=== PATIENT | male | born 1960 | race Caucasian/White ===

== ENCOUNTER 2017-04-15 14:54 | Observation (INO) | payer OTHER ==
[~2017-04-15] VITALS: Ht 170.2 cm; Wt 77.3 kg
[2017-04-15] VITALS (8 sets, daily range): BP systolic 121–152; BP diastolic 68–94; PULSE 55–90; RESP 14–18; TEMP 97.9–98.7; O2SAT 53–99
--- NOTE | 2017-04-15 14:58 | PD ---
HPI Chief Complaint: syncopal episode Time Seen by Provider: 14:58 Travel History International Travel<30 days: No Contact w/Intl Traveler<30days: No Traveled to known affect area: No History of Present Illness HPI 57-year-old male with history for CAD, ID approximately 3 months ago with stent placement, alcohol dependency and tobacco dependency, presents to [facility] department today for evaluation of a syncopal episode. Patient states that he does not know what happened. Per [facility] report, the patient collapsed. When he awoke he was confused about what happened. Patient states he did not have any aura or lightheaded sensation prior to this. He has not been recently ill. He is denying any chest pain or tightness. No difficulty breathing. There is no loss of bowel or bladder. No tongue biting. Patient is on Plavix. He has no other symptoms to report. PFSH Past Medical History Cardiac Catheterization: Yes Social History Alcohol Use: Yes Tobacco Use: Yes Allergies-Medications (Allergen,Severity, Reaction): Coded Allergies: No Known Allergies (Unverified , 04/15/17) Review of Systems Except as stated in HPI: all other systems reviewed are Neg Physical Exam Narrative GENERAL: Well-nourished male patient, sitting up in bed in no acute distress SKIN: Focused skin assessment warm/dry. Psoriatic plaques over the anterior lateral trunk. HEAD: Atraumatic. Normocephalic. EYES: Pupils equal and round. No scleral icterus. No injection or drainage. ENT: No nasal bleeding or discharge. Mucous membranes pink and moist. NECK: Trachea midline. No JVD. CARDIOVASCULAR: Regular rate and rhythm. No murmur appreciated. RESPIRATORY: No accessory muscle use. Diminished. Breath sounds equal bilaterally. GASTROINTESTINAL: Abdomen soft, non-tender, nondistended. Hepatic and splenic margins not palpable. MUSCULOSKELETAL: No obvious deformities. No clubbing. No cyanosis. No edema. NEUROLOGICAL: Awake and alert. No obvious cranial nerve deficits. Motor grossly within normal limits. Normal speech. PSYCHIATRIC: Appropriate mood and affect; insight and judgment normal. Data Data Last Documented VS Vital Signs Date Time Temp Pulse Resp B/P Pulse Ox O2 Delivery O2 Flow Rate FiO2 04/15/17 17:09 71 142/80 79 148/90 76 150/89 04/15/17 15:10 14 97 Room Air 04/15/17 15:05 98.7 Orders Electrocardiogram (04/15/17 15:06) Complete Blood Count With Diff (04/15/17 15:06) Comprehensive Metabolic Panel (04/15/17 15:06) Magnesium (Mg) (04/15/17 15:06) Ckmb (Isoenzyme) Profile (04/15/17 15:06) Troponin I (04/15/17 15:06) Act Partial Throm Time (Ptt) (04/15/17 15:06) Prothrombin Time / Inr (Pt) (04/15/17 15:06) Chest, Single Ap (04/15/17 15:06) Ct Brain W/O Iv Contrast(Rout) (04/15/17 15:06) Ecg Monitoring (04/15/17 15:06) Iv Access Insert/Monitor (04/15/17 15:06) Oximetry (04/15/17 15:06) Sodium Chloride 0.9% Flush (Ns Flush) (04/15/17 15:15) Sodium Chlor 0.9% 1000 Ml Inj (Ns 1000 M (04/15/17 15:06) CKMB (04/15/17 15:10) CKMB% (04/15/17 15:10) Orthostatic Vital Signs (04/15/17 16:49) Admit Order (Ed Use Only) (04/15/17 17:23) Labs Laboratory Tests Test 04/15/17 15:10 White Blood Count 7.5 TH/MM3 Red Blood Count 3.85 MIL/MM3 Hemoglobin 13.4 GM/DL Hematocrit 38.5 % Mean Corpuscular Volume 100.1 FL Mean Corpuscular Hemoglobin 34.8 PG Mean Corpuscular Hemoglobin 34.8 % Concent Red Cell Distribution Width 12.8 % Platelet Count 239 TH/MM3 Mean Platelet Volume 6.6 FL Neutrophils (%) (Auto) 71.7 % Lymphocytes (%) (Auto) 17.1 % Monocytes (%) (Auto) 8.1 % Eosinophils (%) (Auto) 2.4 % Basophils (%) (Auto) 0.7 % Neutrophils # (Auto) 5.4 TH/MM3 Lymphocytes # (Auto) 1.3 TH/MM3 Monocytes # (Auto) 0.6 TH/MM3 Eosinophils # (Auto) 0.2 TH/MM3 Basophils # (Auto) 0.1 TH/MM3 CBC Comment DIFF FINAL Differential Comment Prothrombin Time 10.7 SEC Prothromb Time International 1.0 RATIO Ratio Activated Partial 23.9 SEC Thromboplast Time Sodium Level 141 MEQ/L Potassium Level 3.5 MEQ/L Chloride Level 109 MEQ/L Carbon Dioxide Level 20.7 MEQ/L Anion Gap 11 MEQ/L Blood Urea Nitrogen 12 MG/DL Creatinine 0.91 MG/DL Estimat Glomerular Filtration 86 ML/MIN Rate Random Glucose 110 MG/DL Calcium Level 8.7 MG/DL Magnesium Level 1.7 MG/DL Total Bilirubin 0.3 MG/DL Aspartate Amino Transf 41 U/L (AST/SGOT) Alanine Aminotransferase 46 U/L (ALT/SGPT) Alkaline Phosphatase 82 U/L Total Creatine Kinase 288 U/L Creatine Kinase MB 3.1 NG/ML Troponin I LESS THAN 0.02 NG/ML Total Protein 6.9 GM/DL Albumin 3.4 GM/DL [facility] Medical Decision Making Medical Screen Exam Complete: Yes Emergency Medical Condition: Yes Medical Record Reviewed: Yes Differential Diagnosis Syncope versus near syncope versus seizure versus electrolyte abnormality versus dehydration versus cardiac event Narrative Course 57-year-old male presents to the emergency department following a syncopal episode. Patient at this time is awake and alert. He does not recall the event. He has not had anything like this in the past. Patient does have significant cardiac history. Laboratory Tests Test 04/15/17 15:10 White Blood Count 7.5 TH/MM3 Red Blood Count 3.85 MIL/MM3 Hemoglobin 13.4 GM/DL Hematocrit 38.5 % Mean Corpuscular Volume 100.1 FL Mean Corpuscular Hemoglobin 34.8 PG Mean Corpuscular Hemoglobin 34.8 % Concent Red Cell Distribution Width 12.8 % Platelet Count 239 TH/MM3 Mean Platelet Volume 6.6 FL Neutrophils (%) (Auto) 71.7 % Lymphocytes (%) (Auto) 17.1 % Monocytes (%) (Auto) 8.1 % Eosinophils (%) (Auto) 2.4 % Basophils (%) (Auto) 0.7 % Neutrophils # (Auto) 5.4 TH/MM3 Lymphocytes # (Auto) 1.3 TH/MM3 Monocytes # (Auto) 0.6 TH/MM3 Eosinophils # (Auto) 0.2 TH/MM3 Basophils # (Auto) 0.1 TH/MM3 CBC Comment DIFF FINAL Differential Comment Prothrombin Time 10.7 SEC Prothromb Time International 1.0 RATIO Ratio Activated Partial 23.9 SEC Thromboplast Time Sodium Level 141 MEQ/L Potassium Level 3.5 MEQ/L Chloride Level 109 MEQ/L Carbon Dioxide Level 20.7 MEQ/L Anion Gap 11 MEQ/L Blood Urea Nitrogen 12 MG/DL Creatinine 0.91 MG/DL Estimat Glomerular Filtration 86 ML/MIN Rate Random Glucose 110 MG/DL Calcium Level 8.7 MG/DL Magnesium Level 1.7 MG/DL Total Bilirubin 0.3 MG/DL Aspartate Amino Transf 41 U/L (AST/SGOT) Alanine Aminotransferase 46 U/L (ALT/SGPT) Alkaline Phosphatase 82 U/L Total Creatine Kinase 288 U/L Creatine Kinase MB 3.1 NG/ML Troponin I LESS THAN 0.02 NG/ML Total Protein 6.9 GM/DL Albumin 3.4 GM/DL I discussed the patient with my attending who has also assessed the patient. Patient will be admitted observation for syncopal workup. Plan is discussed with the patient and he is in agreement of the PLAN care. Diagnosis Primary Impression: Syncope Qualified Code: R55 - Syncope, unspecified syncope type Additional Impression: Alcohol dependence Qualified Code: F10.29 - Alcohol dependence with unspecified alcohol-induced disorder Admitting Information Admitting Physician Requests: Observation Condition: Stable Sarah Vargas Apr 15, 2017 14:58
[2017-04-15] MEDS ORDERED: SODIUM CHLOR 0.9% 1000 ML INJ 1,000 ML IV ONE (15:06)
[2017-04-15] MEDS ORDERED: SODIUM CHLORIDE 0.9% FLUSH 10 ML FLUSH IVF PRN (15:15)
--- NOTE | 2017-04-15 15:45 | RADRPT ---
EXAM DATE/TIME: 04/15/2017 15:16 [facility] COMPARISON: No previous studies available for comparison. INDICATIONS : Syncope. MEDICAL HISTORY : Chronic obstructive pulmonary disease. Myelopathy. high blood pressure SURGICAL HISTORY : Coronary artery stent. ENCOUNTER: Initial ACUITY: 1 day PAIN SCORE: 0/10 LOCATION: Bilateral chest FINDINGS: A single view of the chest demonstrates the lungs to be symmetrically aerated without evidence of mas s, infiltrate or effusion. The cardiomediastinal contours are unremarkable. Osseous structures are intact. CONCLUSION: Normal examination. Magdi Rosa MD on April 15, 2017 at 15:43 Board Certified Radiologist. This report was verified electronically.
[2017-04-15 16:05] LABS: APTT (PATIENT) 23.9 SEC (24.3-30.1); PROTHROMBIN TIME - PATIENT 10.7 SEC (9.8-11.6)
--- NOTE | 2017-04-15 16:08 | RADRPT ---
EXAM DATE/TIME: 04/15/2017 15:53 [facility] COMPARISON: No previous studies available for comparison. INDICATIONS : Syncopal episode today. RADIATION DOSE: 56.35 CTDIvol (mGy) MEDICAL HISTORY : Cardiovascular disease. SURGICAL HISTORY : None. ENCOUNTER: Initial ACUITY: 1 day PAIN SCALE: 0/10 LOCATION: Bilateral head TECHNIQUE: Multiple contiguous axial images were obtained of the head. Using automated exposure control and adj ustment of the mA and/or kV according to patient size, radiation dose was kept as low as reasonably a chievable to obtain optimal diagnostic quality images. DICOM format image data is available electro nically for review and comparison. FINDINGS: CEREBRUM: The ventricles are normal for age. No evidence of midline shift, mass lesion, hemorrhage or acute in farction. No extra-axial fluid collections are seen. POSTERIOR FOSSA: The cerebellum and brainstem are intact. The 4th ventricle is midline. The cerebellopontine angle i s unremarkable. EXTRACRANIAL: The visualized portion of the orbits is intact. SKULL: The calvaria is intact. No evidence of skull fracture. CONCLUSION: Normal examination. Magdi Rosa MD on April 15, 2017 at 16:06 Board Certified Radiologist. This report was verified electronically.
[2017-04-15 16:13] LABS: ALT (GPT) 46 U/L (12-78); ANION GAP 11 MEQ/L (5-15); AST (GOT) 41 U/L (15-37); BICARBONATE 20.7 MEQ/L (21.0-32.0); BLOOD UREA NITROGEN 12 MG/DL (7-18); CHLORIDE 109 MEQ/L (98-107); GLOMERULAR FILTRATION RATE 86 ML/MIN (>89); MAGNESIUM 1.7 MG/DL (1.5-2.5); POTASSIUM 3.5 MEQ/L (3.5-5.1); SODIUM (NA) 141 MEQ/L (136-145)
[2017-04-15 16:15] LABS: AUTOMATED NEUTROPHIL # 5.4 TH/MM3 (1.8-7.7); BASOPHIL # 0.1 TH/MM3 (0-0.2); BASOPHIL % 0.7 % (0.0-2.0); EOSINOPHIL # 0.2 TH/MM3 (0-0.4); EOSINOPHIL % 2.4 % (0.0-4.0); HEMATOCRIT 38.5 % (39.0-51.0); HEMO FLAGS DIFF FINAL; LYMPH % 17.1 % (9.0-44.0); LYMPHOCYTE # 1.3 TH/MM3 (1.0-4.8); MEAN CELL VOLUME 100.1 FL (80.0-100.0); MEAN CORPUSCULAR HEMOGLOBIN 34.8 PG (27.0-34.0); MEAN CORPUSCULAR HGB CONC 34.8 % (32.0-36.0); MONO % 8.1 % (0.0-8.0); NEUT % 71.7 % (16.0-70.0); PLATELET COUNT 239 TH/MM3 (150-450); RED BLOOD COUNT 3.85 MIL/MM3 (4.50-5.90); RED CELL DISTRIBUTION WIDTH 12.8 % (11.6-17.2); WHITE BLOOD COUNT 7.5 TH/MM3 (4.0-11.0)
[2017-04-15 16:17] LABS: ALKALINE PHOSPHATASE 82 U/L (45-117); CREATINE KINASE 288 U/L (39-308); TOTAL BILIRUBIN ADULT 0.3 MG/DL (0.2-1.0)
[2017-04-15 16:30] LABS: CKMB 3.1 NG/ML (0.5-3.6)
[2017-04-15] MEDS ORDERED: LISI-515 PO (18:10)
[2017-04-15] MEDS ORDERED: ASPI325T33 PO (18:10)
[2017-04-15] MEDS ORDERED: PLAV75TA29 PO (18:10)
[2017-04-15] MEDS ORDERED: TOPR25TA PO (18:10)
[2017-04-15] MEDS ORDERED: ATOR40TA16 PO (18:10)
--- NOTE | 2017-04-15 18:23 | HHI.HP ---
HPI Service [facility] Primary Care Physician Unknown Admission Diagnosis SYNCOPE Diagnoses: Chief Complaint: Syncopal episode Travel History International Travel<30 Days: No Contact w/Intl Traveler <30 Da: No Traveled to Known Affected Are: No History of Present Illness Written by Mera Nowak, acting as scribe for Dr. Camacho on 04/15/17 at 18:00. This is a 57-year-old male patient with past medical history which includes CAD status post RI cardiac stents 2 placed 3 months ago, hypertension and hyperlipidemia. Patient works for a [employer]. Patient was working today reports he remembers talking to someone under the tent the the next thing he remembers he awoke in the emergency department. Patient's coworker who is present at the time reports patient got stiff had his eyes rolled back in his head began to, "violently shake," then fell on the ground the episode lasted for approximately 3-4 minutes. Patient's coworker reports patient was on the ground he grabbed his chest was unable to verbalize if he had any chest pain or not. Patient again has no recollection of these events. There is no report or evidence of loss of bowel or bladder control. Patient reports when he awoke he was not confused. She reports he had no indication prior to the event that it was coming on. Patient denies feeling dizzy changes in vision or presyncopal aura. Patient does report he is skipped his cholesterol medications for the past 3-4 nights but reports she is taking all of his other medications religiously. Patient does smoke packs per day and drinks between 4-5 beers per night. Patient's last drink was last night. Patient denies EtOH withdrawal seizures in the past or any seizure history in the past. At this time patient reports he feels well denies fevers chills nausea vomiting diarrhea constipation or shortness of breath. Patient does report mild bilateral musculoskeletal type soreness throughout his chest. Review of Systems Except as stated in HPI: all other systems reviewed are Neg Past Family Social History Past Medical History CAD status post RI cardiac stents 2 placed 3 months ago, hypertension and hyperlipidemia Past Surgical History Cardiac stents x2 placed 3 months ago Cardiac cath Bilateral inguinal hernia repair left ankle surgery 25 year ago Reported Medications Atorvastatin (Atorvastatin Calcium) 40 Mg Tab 40 Mg PO HS Aspirin EC (Aspirin) 325 Mg Tabdr 325 Mg PO DAILY @1200 Lisinopril 20 Mg Tab 20 Mg PO DAILY @ 1200 Toprol XL (Metoprolol Succinate) 25 Mg Tab 25 Mg PO DAILY Plavix (Clopidogrel Bisulfate) 75 Mg Tab 75 Mg PO DAILY Allergies: Coded Allergies: No Known Allergies (Unverified , 04/15/17) Active Ordered Medications Current Medications Medications (Trade) Dose Ordered Sig/Liudmila Route Start Time Stop Time Status Last Admin (NS Flush) 2 ml UNSCH PRN IVF 04/15/17 15:15 Family History Aunt had RI and CVA Social History EtOH use 4-5 beers per day Tobacco use one pack status per day Denies illicit drug use Physical Exam Vital Signs Vital Signs Date Time Temp Pulse Resp B/P Pulse Ox O2 Delivery O2 Flow Rate FiO2 04/15/17 17:50 70 15 152/91 99 Room Air 04/15/17 17:09 71 142/80 79 148/90 76 150/89 04/15/17 15:10 90 14 145/94 97 Room Air 04/15/17 15:10 90 14 97 Room Air 04/15/17 15:05 98.7 90 15 145/94 98 Physical Exam GENERAL: This is a well-nourished, well-developed patient, in no apparent distress. SKIN: No rashes, ecchymoses or lesions. Cool and dry. Mcallister reddened blood. Skin HEAD: Atraumatic. Normocephalic. No temporal or scalp tenderness. EYES: Pupils equal round and reactive. Extraocular motions intact. No scleral icterus. No injection or drainage. CARDIOVASCULAR: Regular rate and rhythm without murmurs, gallops, or rubs. RESPIRATORY: Clear to auscultation. Breath sounds equal bilaterally. No wheezes , rales, or rhonchi. GASTROINTESTINAL: Abdomen soft, non-tender, nondistended. No guarding. MUSCULOSKELETAL: Extremities without clubbing, cyanosis, or edema. No joint tenderness, effusion, or edema noted. No calf tenderness. Negative Homans sign bilaterally. NEUROLOGICAL: Awake and alert. Cranial nerves II through XII intact. Motor and sensory grossly within normal limits. Five out of 5 muscle strength in all muscle groups. Normal speech. Laboratory Laboratory Tests Test 04/15/17 15:10 White Blood Count 7.5 Red Blood Count 3.85 Hemoglobin 13.4 Hematocrit 38.5 Mean Corpuscular Volume 100.1 Mean Corpuscular Hemoglobin 34.8 Mean Corpuscular Hemoglobin 34.8 Concent Red Cell Distribution Width 12.8 Platelet Count 239 Mean Platelet Volume 6.6 Neutrophils (%) (Auto) 71.7 Lymphocytes (%) (Auto) 17.1 Monocytes (%) (Auto) 8.1 Eosinophils (%) (Auto) 2.4 Basophils (%) (Auto) 0.7 Neutrophils # (Auto) 5.4 Lymphocytes # (Auto) 1.3 Monocytes # (Auto) 0.6 Eosinophils # (Auto) 0.2 Basophils # (Auto) 0.1 CBC Comment DIFF FINAL Differential Comment Prothrombin Time 10.7 Prothromb Time International 1.0 Ratio Activated Partial 23.9 Thromboplast Time Sodium Level 141 Potassium Level 3.5 Chloride Level 109 Carbon Dioxide Level 20.7 Anion Gap 11 Blood Urea Nitrogen 12 Creatinine 0.91 Estimat Glomerular Filtration 86 Rate Random Glucose 110 Calcium Level 8.7 Magnesium Level 1.7 Total Bilirubin 0.3 Aspartate Amino Transf 41 (AST/SGOT) Alanine Aminotransferase 46 (ALT/SGPT) Alkaline Phosphatase 82 Total Creatine Kinase 288 Creatine Kinase MB 3.1 Troponin I LESS THAN 0.02 Total Protein 6.9 Albumin 3.4 Result Diagram: 04/15/17 1510 04/15/17 1510 Imaging Last Impressions Head CT 04/15/17 1506 Signed Impressions: Service Date/Time: March 15:53 - CONCLUSION: Normal examination. Magdi Rosa MD Chest X-Ray 04/15/17 1506 Signed Impressions: Service Date/Time: March 15:16 - CONCLUSION: Normal examination. Magdi Rosa MD Assessment and Plan Problem List: (1) Syncope ICD Code: R55 Status: Acute (2) CAD (coronary artery disease) ICD Code: I25.10 Status: Chronic (3) HTN (hypertension) ICD Code: I10 Status: Chronic (4) Hyperlipidemia ICD Code: E78.5 Status: Chronic Assessment and Plan This is a 57-year-old male patient with past medical history which includes CAD status post RI cardiac stents 2 placed 3 months ago, hypertension and hyperlipidemia. Syncopal episode while working with shaking and lost consciousness reported by coworker episode lasted 3-4 minutes. Syncopal episode- dehydration versus seizure versus syncope versus RI Normal saline 84 cc/h Head CT reviewed by me normal exam Chest x-ray reviewed by me normal exam Orthostatic vital signs reviewed and negative for orthostatic hypotension EKG reviewed by me sinus rhythm ventricular rate [address] changes identified, Q wave noted in the inferior leads Ultrasound bilateral carotid arteries Echocardiogram ordered and pending EEG ordered and pending Continuous cardiac telemetry Serial EKGs Serial troponin Cardiology consult Hypertension continue home medication monitor blood pressure trend Hyperlipidemia continue statin DVT prophylaxis with heparin subcutaneous SCDs Discussed with patient and nursing and ER physician. This note was transcribed by laurita Nowak. I, Dr. Marino Jensne personally performed the history, physical exam, and medical decision making; and confirmed the accuracy of the information in the transcribed note. Authenticated by Dr. Marino Jensen on 04/15/17 at 18:44. Problem Qualifiers (1) Syncope: Qualified Code: R55 - Syncope, unspecified syncope type Mera Nowak Apr 15, 2017 18:23 Marino Thomas MD Apr 15, 2017 18:44
[2017-04-15] MEDS: SODIUM CHLOR 0.9% 1000 ML INJ 1,000 ML IV SCH (19:35)
--- NOTE | 2017-04-15 19:49 | RADRPT ---
EXAM DATE/TIME: 04/15/2017 18:36 [facility] COMPARISON: No previous studies available for comparison. INDICATIONS : Syncope. MEDICAL HISTORY : Hypercholesterolemia. Hypertension. Myocardial infarction. Coronary artery disease. Anticoagulant the rapy, Plavix. SURGICAL HISTORY : Coronary artery stent. Hernia repair. Left ankle surgery. ENCOUNTER: Initial ACUITY: 1 day PAIN SCORE: 0/10 LOCATION: Bilateral neck PEAK SYSTOLIC VELOCITIES (cm/sec): ICA/CCA RATIO: Right: 1.2 Left: 1.2 ICA: Right: 96 Left: 90 CCA: Right: 77 Left: 74 ECA: Right: 78 Left: 94 VERTEBRAL: Right: 56 antegrade Left: 49 antegrade Elevated flow velocities and ICA/CCA ratios have been found to correlate with increased degrees of vessel stenosis, calculated as percentage of diameter relative to a normal segment of distal ICA/CCA FINDINGS: RIGHT CAROTID: No significant stenosis is visualized. The waveforms are within normal limits. LEFT CAROTID: No significant stenosis is visualized. The waveforms are within normal limits. VERTEBRAL ARTERIES: Antegrade flow is seen in both vertebral arteries. MISCELLANEOUS: None. CONCLUSION: 1. No evidence for hemodynamically significant stenosis. Mild calcific plaquing at the carotid bifurc ations. Kane Salas MD on April 15, 2017 at 19:48 Board Certified Radiologist. This report was verified electronically.
[2017-04-15] MEDS ORDERED: ATORVASTATIN 40 MG TAB PO SCH (21:00)
[2017-04-15 22:12] LABS: ANION GAP 9 MEQ/L (5-15); AST (GOT) 45 U/L (15-37); BICARBONATE 21.4 MEQ/L (21.0-32.0); BLOOD UREA NITROGEN 11 MG/DL (7-18); CHLORIDE 112 MEQ/L (98-107); GLOMERULAR FILTRATION RATE 109 ML/MIN (>89); POTASSIUM 3.4 MEQ/L (3.5-5.1); SODIUM (NA) 142 MEQ/L (136-145)
[2017-04-15 22:13] LABS: ALT (GPT) 43 U/L (12-78)
[2017-04-15 22:15] LABS: ALKALINE PHOSPHATASE 78 U/L (45-117); TOTAL BILIRUBIN ADULT 0.5 MG/DL (0.2-1.0)
[2017-04-15] MEDS ORDERED: POTASSIUM CHLORIDE 20 MEQ CONTROLLED RELEASE TAB PO ONE (23:00)
[2017-04-15] MEDS ORDERED: MORPHINE SULFATE 4 MG/ML INJ IV PUSH ONE (23:00)
[2017-04-16] VITALS (8 sets, daily range): BP systolic 111–128; BP diastolic 63–78; PULSE 50–56; RESP 16–20; TEMP 97.7–98.4; O2SAT 97–100
[2017-04-16] MEDS: SODIUM CHLOR 0.9% 1000 ML INJ 1,000 ML IV SCH (06:13)
[2017-04-16 07:51] LABS: AUTOMATED NEUTROPHIL # 6.3 TH/MM3 (1.8-7.7); BASOPHIL # 0.1 TH/MM3 (0-0.2); BASOPHIL % 0.7 % (0.0-2.0); EOSINOPHIL # 0.2 TH/MM3 (0-0.4); EOSINOPHIL % 2.5 % (0.0-4.0); HEMATOCRIT 36.9 % (39.0-51.0); HEMO FLAGS DIFF FINAL; LYMPH % 14.7 % (9.0-44.0); LYMPHOCYTE # 1.2 TH/MM3 (1.0-4.8); MEAN CELL VOLUME 101.9 FL (80.0-100.0); MEAN CORPUSCULAR HEMOGLOBIN 34.5 PG (27.0-34.0); MEAN CORPUSCULAR HGB CONC 33.8 % (32.0-36.0); MONO % 7.2 % (0.0-8.0); NEUT % 74.9 % (16.0-70.0); PLATELET COUNT 203 TH/MM3 (150-450); RED BLOOD COUNT 3.62 MIL/MM3 (4.50-5.90); RED CELL DISTRIBUTION WIDTH 12.9 % (11.6-17.2); WHITE BLOOD COUNT 8.4 TH/MM3 (4.0-11.0)
[2017-04-16] MEDS ORDERED: ASPIRIN EC 81 MG TABEC PO SCH (08:00)
[2017-04-16] MEDS ORDERED: METOPROLOL SUCCINATE 25 MG EXTENDED RELEASE TAB PO SCH (09:00)
[2017-04-16] MEDS ORDERED: CLOPIDOGREL 75 MG TAB PO SCH (09:00)
[2017-04-16] MEDS ORDERED: LISINOPRIL 20 MG TAB PO SCH (09:00)
--- NOTE | 2017-04-16 11:02 | MB ---
cc: PARISH RIVERA MD DATE OF CONSULTATION 04/16/2017 REASON FOR CONSULTATION Syncope HISTORY OF PRESENT ILLNESS Mr. Herbert is a 57-year-old man who does have a history of CAD with two stents placed earlier this year, as well as hypertension and hyperlipidemia. He denies any cardiomyopathy that he is aware of. 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 He was supposed to be on light duty, but did full duties despite this and was down in a 30 feet whole cleaning out the waste for about 20 minutes and in the heat. When he came out, he bent over to take off his boots and when he bent over, he passed out. He reports that he does not have any recollection of the event. He did not have any prodromal symptoms and specifically denies any chest pain, weakness or dizziness. He does report that he had been sweating prior to the event as expected given he is working out in the hot [place] sun. He does continue to smoke. 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 PAST MEDICAL HISTORY As per the HPI. OUTPATIENT MEDICATIONS Include: 1. Aspirin 2. Lisinopril 3. Toprol 4. Plavix ALLERGIES NO KNOWN DRUG ALLERGIES. FAMILY HISTORY Negative for CVA. SOCIAL HISTORY The patient does continue to drink and smoke. REVIEW OF SYSTEMS Except as mentioned in the HPI, all 12 systems are negative. PHYSICAL EXAM On physical examination, vital signs are 97.8, 55, 18, 128/72. GENERAL: He is a well-appearing man who is in no apparent distress. NECK: His neck is free from JVD. LUNGS: The lungs are decreased and clear to auscultation. CARDIOVASCULAR: On examination, he has a normal S1 and S2. I did not appreciate any murmurs, rubs or gallops. ABDOMEN: Soft. EXTREMITIES: Free from edema. Chest x-ray Is normal. LABORATORY VALUES Significant for serial troponins of less than 0.02/less than 0.02/less than 0.02. EKG shows sinus bradycardia without any acute changes. Telemetry shows sinus bradycardia in the low 50s. IMPRESSION Syncope - The patient has multiple potential etiologies to his syncope including dehydration, symptomatic bradycardia versus ischemia versus other. His ECG and enzymes were negative. His echo is pending. At this point, I would at least cut his metoprolol in half to 12.5 a day. If not, outright discontinue it pending his echocardiogram. The patient does have a press department manager in the [place] that he wishes to follow with. This is not unreasonable. It is reasonable for the patient to be discharged home if his EF is normal. Hans Edwards /10:40 AM /10:56 AM
--- NOTE | 2017-04-16 12:56 | MG ---
cc: TANIA REDDY MD Lab No: Date: 04/16/2017 Age: 57 Sex: M Race: __ DATE OF [address] Blake Camacho MEDICAL HISTORY 1. Coronary artery disease status post stent placement 2. Cardiac cath 3. Alcohol and tobacco dependency 4. Caffeine use 5. Hypertension 6. COPD 7. Hypercholesterolemia 8. Excessive stress 9. Recent syncopal episode MEDICATIONS 1. Plavix 2. Proventil 3. Toprol 4. Aspirin DESCRIPTION At the beginning of the EEG, the background activity is 9-10 Hz alpha located posteriorly. Attenuates to eye-opening. Hyperventilation did not make a change in the EEG. Photic stimulation did not elicit a driving response. During the recording, the patient became drowsy with drop out of the background rhythm and replaced by theta activity, and transitioned to stage II sleep with the appearance of K-complexes. There were no electrographic seizures or epileptiform discharges noted during the recording. INTERPRETATION This is a normal awake and sleep EEG. No ictal activity. No focality. Absence of electrographic seizures or epileptiform discharges does not rule out the diagnosis of a seizure disorder. Clinical correlation is recommended. MD RAUL Buck/FANI /12:46 PM /12:54 PM REJI
--- NOTE | 2017-04-16 14:54 | EKG ---
Date Performed: 04/15/2017 Time Performed: 15:10:05 PTAGE: 57 years EKG: Sinus rhythm POSSIBLE LATERAL MYOCARDIAL INFARCTION INFERIOR MYOCARDIAL INFARCTION ABNORMAL ECG NO PREVIOUS TRACING DOCTOR: Scooter Murrell Interpretating Date/Time 04/16/2017 14:51:47
--- NOTE | 2017-04-16 16:15 | ECHRPT ---
Indication: Syncope and collapse CONCLUSIONS Normal left ventricular size. Wall thickness is normal. The left ventricular systolic function is normal with an estimated ejection fraction in the range of 60-65%. Trace mitral valve regurgitation. There is mild tricuspid valve regurgitation. The estimated pulmonary arterial pressure is 15 mmHg. BP: 128 / 70 HR: 55 Rhythm: Sinus Technical Quality:Good FINDINGS LEFT VENTRICLE Normal left ventricular size. Wall thickness is normal. The left ventricular systolic function is normal with an estimated ejection fraction in the range of 60-65%. RIGHT VENTRICLE Normal right ventricular size and systolic function. LEFT ATRIUM The left atrial size is normal. RIGHT ATRIUM The right atrial size is normal. ATRIAL SEPTUM Normal atrial septal thickness without atrial level shunting by limited color doppler interrogation. AORTA The aortic root and proximal ascending aorta are normal in size on limited imaging. MITRAL VALVE Trace mitral valve regurgitation. AORTIC VALVE Trileaflet aortic valve. No aortic valve stenosis or regurgitation. TRICUSPID VALVE There is mild tricuspid valve regurgitation. The estimated pulmonary arterial pressure is 15 mmHg. PULMONARY VALVE The pulmonary valve is not well visualized. VESSELS The inferior vena cava is normal in size. PERICARDIUM No pericardial effusion. Andre Ortiz MD, FACC, [facility] [place] (Electronically Signed) Final Date:16 April 2017 16:14
[2017-04-16] MEDS ORDERED: METO25TA3 PO (17:16)
--- NOTE | 2017-04-16 17:17 | HHI.DCPOC ---
Discharge Care Plan Diagnosis: (1) Alcohol dependence (2) CAD (coronary artery disease) (3) Hyperlipidemia (4) Syncope (5) HTN (hypertension) (6) Bradycardia Goals to Promote Your Health * To prevent worsening of your condition and complications * To maintain your health at the optimal level Directions to Meet Your Goals Take your medications as prescribed Follow your dietary instruction Follow activity as directed Keep your appointments as scheduled Take your immunizations and boosters as scheduled If your symptoms worsen call your PCP, if no PCP go to Urgent Care Center or Emergency Room Smoking is Dangerous to Your Health. Avoid second hand smoke Call the 24-hour hour crisis hotline for domestic abuse at Marino Thomas MD Apr 16, 2017 17:17
--- NOTE | 2017-04-16 17:20 | HHI.DS ---
Discharge Summary Admission Date Apr 15, 2017 at 17:24 Discharge Date: Apr 16, 2017 Admitting Diagnosis SYNCOPE (1) Syncope ICD Code: R55 (2) CAD (coronary artery disease) ICD Code: I25.10 (3) HTN (hypertension) ICD Code: I10 (4) Hyperlipidemia ICD Code: E78.5 Procedures none Brief History - From Admission Written by Mera Nowak, acting as scribe for Dr. Camacho on 04/15/17 at 18:00. This is a 57-year-old male patient with past medical history which includes CAD status post GA cardiac stents 2 placed 3 months ago, hypertension and hyperlipidemia. Patient works for a [employer]. Patient was working today reports he remembers talking to someone under the tent the the next thing he remembers he awoke in the emergency department. Patient's coworker who is present at the time reports patient got stiff had his eyes rolled back in his head began to, "violently shake," then fell on the ground the episode lasted for approximately 3-4 minutes. Patient's coworker reports patient was on the ground he grabbed his chest was unable to verbalize if he had any chest pain or not. Patient again has no recollection of these events. There is no report or evidence of loss of bowel or bladder control. Patient reports when he awoke he was not confused. She reports he had no indication prior to the event that it was coming on. Patient denies feeling dizzy changes in vision or presyncopal aura. Patient does report he is skipped his cholesterol medications for the past 3-4 nights but reports she is taking all of his other medications religiously. Patient does smoke packs per day and drinks between 4-5 beers per night. Patient's last drink was last night. Patient denies EtOH withdrawal seizures in the past or any seizure history in the past. At this time patient reports he feels well denies fevers chills nausea vomiting diarrhea constipation or shortness of breath. Patient does report mild bilateral musculoskeletal type soreness throughout his chest. CBC/BMP: 04/16/17 0625 04/15/17 2100 Significant Findings Laboratory Tests Test 04/15/17 04/15/17 04/16/17 15:10 21:00 06:25 Red Blood Count 3.85 MIL/MM3 3.62 MIL/MM3 (4.50-5.90) (4.50-5.90) Hematocrit 38.5 % 36.9 % (39.0-51.0) (39.0-51.0) Mean Corpuscular Volume 100.1 FL 101.9 FL (80.0-100.0) (80.0-100.0) Mean Corpuscular Hemoglobin 34.8 PG 34.5 PG (27.0-34.0) (27.0-34.0) Mean Platelet Volume 6.6 FL 6.2 FL (7.0-11.0) (7.0-11.0) Neutrophils (%) (Auto) 71.7 % 74.9 % (16.0-70.0) (16.0-70.0) Monocytes (%) (Auto) 8.1 % (0.0-8.0) Activated Partial 23.9 SEC Thromboplast Time (24.3-30.1) Chloride Level 109 MEQ/L 112 MEQ/L (98-107) (98-107) Carbon Dioxide Level 20.7 MEQ/L (21.0-32.0) Estimat Glomerular Filtration 86 ML/MIN (>89) Rate Random Glucose 110 MG/DL (74-106) Aspartate Amino Transf 41 U/L (15-37) 45 U/L (15-37) (AST/SGOT) Troponin I LESS THAN 0.02 NG/ML (0.02-0.05) Potassium Level 3.4 MEQ/L (3.5-5.1) Calcium Level 8.2 MG/DL (8.5-10.1) Total Protein 6.2 GM/DL (6.4-8.2) Albumin 3.3 GM/DL (3.4-5.0) Hemoglobin 12.5 GM/DL (13.0-17.0) Imaging Last Impressions Head CT 04/15/17 1506 Signed Impressions: Service Date/Time: March 15:53 - CONCLUSION: Normal examination. Magdi Rosa MD Chest X-Ray 04/15/17 1506 Signed Impressions: Service Date/Time: March 15:16 - CONCLUSION: Normal examination. Magdi Rosa MD Carotid Artery Ultrasound 04/15/17 0000 Signed Impressions: Service Date/Time: , April 15, 2017 18:36 - CONCLUSION: 1. No evidence for hemodynamically significant stenosis. Mild calcific plaquing at the carotid bifurcations. Kane Salas MD Pt Condition on Discharge: Stable Discharge Disposition: Discharge Home Discharge Time: <= 30 minutes Discharge Instructions DIET: Follow Instructions for: Heart Healthy Diet Activities you can perform: Regular-No Restrictions Activities to Avoid: Strenuous Activity Other Activity Instructions: Please keep hydrated Follow up Referrals: Cardiology - 1 Week New Medications: Metoprolol Tartrate (Metoprolol Tartrate) 25 Mg Tab 12.5 MG PO Q12HR cad #62 TAB Continued Medications: Aspirin DR (Aspirin EC) 325 Mg Tabdr 325 MG PO DAILY @1200 Ref 0 TAB Atorvastatin (Atorvastatin) 40 Mg Tab 40 MG PO HS Cholesterol Management #30 Ref 0 TAB Clopidogrel (Plavix) 75 Mg Tab 75 MG PO DAILY Blood Clot Prevention #30 Ref 0 TAB Lisinopril (Lisinopril) 20 Mg Tab 20 MG PO DAILY @ 1200 #30 Ref 0 TAB Discontinued Medications: Metoprolol Succinate ER 24 HR (Toprol XL) 25 Mg Tab 25 MG PO DAILY #30 Ref 0 TAB Marino Thomas MD Apr 16, 2017 17:20
[2017-04-16] MEDS ORDERED: METOPROLOL TARTRATE 25 MG TAB PO SCH (21:00)
[2017-04-16] MEDS ORDERED: PILL SPLITTER OTHER PRN (21:00)
--- NOTE | 2017-04-19 10:29 | EKG ---
Date Performed: 04/15/2017 Time Performed: 22:41:44 PTAGE: 57 years EKG: SINUS BRADYCARDIA INFERIOR MYOCARDIAL INFARCTION - age indeterminate ABNORMAL ECG PREVIOUS TRACING : 04/15/2017 15.10 DOCTOR: Andre Ortiz Interpretating Date/Time 04/19/2017 10:27:05
== END 2017-04-16 18:15 | disposition home or self-care (01) ==
LOC: NEPC 14:54 → NEDA 17:24 → NEPGCP 20:21
PROVIDERS: ADMIT Hospitalist; ATTEND Hospitalist
DX: R55 Syncope and collapse (principal); R00.1 Bradycardia, unspecified; F10.20 Alcohol dependence, uncomplicated; R94.31 Abnormal electrocardiogram [ECG] [EKG]; I25.10 Atherosclerotic heart disease of native coronary artery without angina pectoris; I10 Essential (primary) hypertension; E78.5 Hyperlipidemia, unspecified; I25.2 Old myocardial infarction; E78.00 Pure hypercholesterolemia, unspecified; J44.9 Chronic obstructive pulmonary disease, unspecified; F17.200 Nicotine dependence, unspecified, uncomplicated; Z95.5 Presence of coronary angioplasty implant and graft; Z79.899 Other long term (current) drug therapy; Z79.82 Long term (current) use of aspirin; Z79.02 Long term (current) use of antithrombotics/antiplatelets; W19.XXXA Unspecified fall, initial encounter; Y92.89 Other specified places as the place of occurrence of the external cause
CPT/HCPCS: 70450; 71010; 80053; 80307; 82550; 82552; 83735; 84484; 85025; 85610; 85730; 93005; 93306; 93880; 95819; 96360; 96361; 99285; G0378; J2270; J7030